=== PATIENT | female | born 1970 | race Caucasian/White ===

== ENCOUNTER 2024-11-25 10:06 | Emergency (ER) | payer BC, SELFPAY ==
[2024-11-25 10:18] VITALS: BP 142/89; PULSE 77; RESP 16; TEMP 36.6; O2SAT 97; BMI 31.0
--- NOTE | 2024-11-25 10:23 | XR_ITS ---
Examination: CT brain head without contrast. 2-D sagittal coronal reconstructions Date and time of exam:November 25, 2024 1041 hrs. Dizziness, hearing loss today CTDI: vol (mGy):51.2 DLP: (mGycm):1023 Technique: Multiple CT axial sections of the brain have been obtained, 5 mm slice thickness. Contrast has not been administered. 2-D sagittal, coronal reconstructions have been obtained Low dose protocols were performed. One or more of the following dose reduction techniques were used; automated exposure control, adjustment of the mA and/or KV according to patient size, use of iterative reconstruction technique. Findings: No significant ventricular enlargement. Intra-axial or extra-axial hemorrhage density is not seen. No mass effect or midline shift Basal cisterns are not remarkable. Fourth ventricle is midline. Cranial vault intact. Impression: Negative for acute hemorrhage, mass effect or midline shift Advise clinical correlation and follow-up accordingly
--- NOTE | 2024-11-25 10:23 | EKG_ITS ---
[facility] Test Date: 2024-11-25 Pat Name: RICK GUZMAN Department: Room: - Gender: Female Overnight Houseperson: : 1970 Requested By: Juan Manuel Prince Order Number: [id number] Reading MD: Juan Manuel Prince Measurements Intervals [place] Rate: 65 P: 5 WA: 129 QRS: 31 QRSD: 106 T: 50 QT: 408 QTc: 426 Interpretive Statements SINUS RHYTHM LOW QRS VOLTAGE IN PRECORDIAL LEADS [QRS DEFLECTION < 1.0 mV IN CHEST LEADS] No previous ECG available for comparison /store/[id number]
--- NOTE | 2024-11-25 10:24 | EDRME_ITS ---
Rapid Medical Screening Exam [facility] Arrival date/time: 11/25/24 10:06 54-year-old female with no known medical history presents to the emergency room with a chief complaint of left-sided arm numbness, and left-sided facial numbness, and left-sided hearing disturbances x 1 day. Patient also states she has had left-sided arm numbness x 1 week. I have greeted and performed a focused initial assessment of this patient. A comprehensive ED assessment and evaluation of the patient, analysis of all test results, and completion of the medical decision making process will be conducted by additional ED providers. Chief Complaint: Extremity Problem,Nontraumatic Time Seen by Provider: 11/25/24 10:20 Vital signs: Vital Signs Temperature 97.9 F 11/25/24 10:18 Pulse Rate 77 11/25/24 10:18 Respiratory Rate 16 11/25/24 10:18 Blood Pressure 142/89 H 11/25/24 10:18 Pulse Oximetry (%) 97 11/25/24 10:18 Oxygen Delivery Method Room Air 11/25/24 10:18 Vital signs reviewed by provider: Yes
--- NOTE | 2024-11-25 11:26 | PRELIM_ITS ---
CT scan of the head without intravenous contrast (axial sections with sagittal and coronal reformats) November 25, 2024 1041 hours Clinical history: dizziness, hearing loss Comparison: No prior study is available for comparison. Findings: There is no evidence of intracranial hemorrhage, mass effect or midline shift. There are periventricular white matter hypodensities, compatible with chronic small vessel ischemia. There is mild volume loss. The calvarium is unremarkable. The mastoid air cells and the visualized paranasal sinuses are clear. Impression: No evidence of intracranial hemorrhage, mass effect or midline shift. Periventricular chronic small vessel ischemia and volume loss. Report Electronically Signed By: Zander Herr 11/25/2024 11:25:32 AM [EST]
[2024-11-25 11:32] LABS: Collection Type, Urine Clean Catch
[2024-11-25 11:37] LABS: Basophils % (Auto) 0 % (0-2.5); Eosinophils # (Auto) 0.1 Thou/mm3 (0.0-0.5); Eosinophils % (Auto) 1 % (0-10); Hematocrit 35.6 % (36.0-46.0); Immature Granulocytes % (Auto) 0 % (0-0); Immature Granulocytes Auto 0.01 Thou/mm3 (0.00-0.00); Lymphocytes % (Auto) 30 % (10-50); Mean Corpuscular HGB Conc 33.7 g/dl (31.0-37.0); Mean Corpuscular Hemoglobin 29.1 pg (25.0-35.0); Mean Corpuscular Volume 86 fL (80-100); Monocytes # (Auto) 0.8 Thou/mm3 (0.0-0.8); Monocytes % (Auto) 12 % (0-12); Neutrophils # (Auto) 3.8 Thou/mm3 (1.8-7.7); Neutrophils % (Auto) 58 % (37-80); Nucleated Red Blood Cell % 0 /100 WBC (0); Platelet Count 260 Thou/mm3 (140-440); RDW Standard Deviation 43.9 fL (36.4-46.3); Red Blood Count 4.12 Miln/mm3 (4.00-5.20); White Blood Count 6.7 Thou/mm3 (3.6-11.0)
[2024-11-25 11:51] LABS: INR 0.9 (0.9-1.3); Partial Thromboplastin Time 22.2 Seconds (22.0-36.0); Prothrombin Time 10.3 Seconds (9.0-12.2)
[2024-11-25 11:54] LABS: B-Type Natriuretic Peptide 39 pg/mL (0-100)
[2024-11-25 11:55] LABS: Amphetamine/Methamp Scrn,U Negative (Negative); Barbiturate Screen,Urine Negative (Negative); Benzodiazepines Screen,Urine Negative (Negative); Benzoylecgonine Screen, Ur Negative (Negative); Fentanyl Screen,Urine Negative (Negative); Opiate Screen,Urine Negative (Negative); THC Screen,Urine Negative (Negative)
[2024-11-25 11:56] LABS: Alanine Aminotransferase 38 U/L (10-49); Albumin, Serum 4.6 gm/dL (3.5-5.0); Albumin/Globulin Ratio 2.2 (1.2-2.2); Alkaline Phosphatase 82 U/L (46-116); Anion Gap 9 (7-16); Aspartate Amino Transferase 22 U/L (0-34); BUN/Creatinine Ratio 25 Ratio (12-20); Bilirubin,Total 0.3 mg/dL (0.3-1.2); Blood Urea Nitrogen 15 mg/dL (9-23); Calcium 9.7 mg/dL (8.3-10.6); Calcium (Corrected) 9.7 mg/dL (8.5-10.1); Chloride 105 mMol/L (98-107); Creatinine (Component) 0.6 mg/dL (0.6-1.3); Estimated Creatinine Clearance 117.9 mL/min (>60); Globulin 2.1 gm/dL (2.3-3.5); Glucose 102 mg/dL (74-106); Osmolality,Calculated 280 (275-295); Potassium 4.3 mMol/L (3.4-5.1); Sodium 140 mMol/L (136-145); Total Protein 6.7 gm/dL (5.7-8.2); Troponin I < 0.002 ng/mL (0.0-0.045); eGFR > 60 See Note
[2024-11-25 12:04] LABS: Bilirubin,Urine Negative (Negative); Blood,Urine Negative (Negative); Clarity,Urine Clear (Clear/Hazy); Color,Urine Colorless (Lt Yel-Yel); Glucose, Urine Negative (Negative); Ketones,Urine Negative (Negative); Leukocyte Esterase,Urine Negative (Negative); Nitrite,Urine Negative (Negative); Protein,Urine Negative (Neg - Trace); RBC,Urine 2 /hpf (0-3); Specific Gravity,Urine 1.008 (1.001-1.035); Squamous Epithelial Cell,Urine 4 /hpf (0-5); Urobilinogen,Urine Negative mg/dL (0.0-1.0); WBC,Urine 1 /hpf (0-5)
== END 2024-11-25 14:54 | disposition left against medical advice (07) ==
PROVIDERS: Nurse Practitioner Family; Emergency Provider Emergency Medicine; PCP Physician Assistant
DX: R20.0 Anesthesia of skin (principal); R94.31 Abnormal electrocardiogram [ECG] [EKG]; R42 Dizziness and giddiness; H91.92 Unspecified hearing loss, left ear; Z53.29 Procedure and treatment not carried out because of patient's decision for other reasons
CPT/HCPCS: 36415; 70450; 80053; 80307; 81001; 83735; 83880; 84484; 85025; 85610; 85730; 93005; 99284

== ENCOUNTER 2025-01-14 12:50 | Outpatient (AMB) | payer BC, SELFPAY ==
[2025-01-14 13:00] VITALS: BP 118/78; PULSE 65; RESP 19; TEMP 36.4; O2SAT 97; BMI 30.8
--- NOTE | 2025-01-14 13:00 | PD.ORTHCLVIS ---
Vital signs 01/14/25 13:00 Height 1.68 m Height Method Stated Weight 86.693 kg Weight Measurement Method Standing Scale BMI 30.8 BP 118/78 Blood Pressure Source Automatic Cuff Blood Pressure Location Left Upper Arm Position Sitting Respiration 19 Pulse 65 Pulse Source Monitor Temp 97.5 F Temp Source Temporal Artery Scan Pulse Oximetry (%) 97 Oxygen Delivery Method Room Air Med/Allergies Allergies & Medications Allergies No Known Allergies Allergy (Mild, Uncoded 01/14/25 13:01) NONE Medication Reconciliation Unobtainable 01/14/25 [History Confirmed 01/14/25] Exam Exam Breathing is nonlabored. Patient has a normal mood and affect. Bilateral extremities were evaluated and demonstrates sensation intact to light touch. Palpable pedal pulses are present. No significant edema is present. Bilateral hips were examined. The patient has no pain with log roll of the hips. Internal rotation to 30 degrees and external rotation to 30 degrees is painless. Negative FADIR. Left knee was examined today. The left knee is in reasonable alignment. Range of motion from 0-120 degrees. Knee is stable to varus and valgus as well as AP translation with <5mm. Patient has a negative McMurrays. There is no pain with patellofemoral compression and no crepitus noted. The knee is nontender to palpation. The right knee was also examined. The right knee is in varus alignment. Range of motion from 0-115 degrees. Knee is stable to varus and valgus as well as AP translation with <5mm. Patient has a negative McMurrays. There is no pain with patellofemoral compression and no crepitus noted. The knee is tender to palpation medially. X-rays Demonstrate osteophytes and significant joint space narrowing medially with duration Assessment and Plan Problem List (1) Unilateral primary osteoarthritis, right knee: Status: Acute Plan Patient is a pleasant 54-year-old female with severe right knee arthritis who is failed conservative treatment. She has tried injections including PRP and stem cells and is paid over $9000 [id number], anti-inflammatories, And home exercises. We discussed total knee replacement as a reasonable option given her failure conservative treatment The nature and purpose of the total knee replacement, alternative method(s) of treatment, the material risks involved, and the possibility of complications were fully explained to the patient. The patient does NOT have any of the following contraindications to TKA: - Active infection of the knee joint, OR - Active systemic bacteremia, OR - Active skin infection or open wound at surgical site, OR - Neuropathic arthritis, OR - Severe, rapidly progressive neurological disease, OR - Severe medical condition that makes risks of surgery outweigh the potential benefit The patient was told the most common risks and complications associated with a total knee replacement include, but are not limited to: blood clots in the leg, fatal pulmonary embolism, dislocation of the prosthesis, intraoperative and postoperative fractures of the femur or tibia, infection, failure of the prosthesis or grafting materials, complications from anesthesia, reactions to blood transfusions, postoperative leg length inequality, instability of the knee replacement, nerve damage or injury, vascular injury, delayed wound healing, infection, other injury or even . In addition, there are risks associated with anesthesia given during this operation. Also, the patient was told that after undergoing a total knee replacement there may still be persistent pain or disability. The patient was informed that the success of this operation in part depends upon the mechanical devices which are going to be implanted and that these devices can fail or malfunction, and may need to be repaired or replaced and there are no guarantees as to the longevity of this device or its parts and that it or its parts could fail prematurely. The patient was also notified that during the course of surgery, there may be a need to use bone graft from donors, and that any bone graft used will be carefully screened for communicable diseases, including AIDS, hepatitis, Jose Juan-Creutzfeldt, or other diseases, but despite the screening procedures, there is a small chance that they could contract one of these diseases. Finally, the patient was asked to follow completely and fully with all advice and recommended treatments, and that recovery and ultimate outcome are affected by their compliance with recommended treatment. We discussed the risks, benefits and treatment alternatives, and the patient is interested in proceeding with surgery. We will try to set this up as expeditiously as possible. 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 3 (1599-1286) HI Intake Visit Data Collection New Patient or Established: Established Patient (seen at [facility] [place] within 3 years) Reason for Visit:: RIGHT KNEE PAIN Natural Resource Specialist Required: No Do You Feel Safe at Home: Yes Questionairres Past Medical History Past Medical History Have you ever been diagnosed with any of the following: Cardiology Problems Hypertension: No Respiratory Problems Smoking: No Smoking Exposure: No Tobacco Use: No Subjective Visit Visit for: new patient and knee (RIGHT) Immunization / Flu Flu Vaccine in the Last 12 Months: No Flu Vaccine Exclusion Criteria: No Exclusion Criteria History of Present Illness Chief complaint: RIGHT KNEE PAIN Ignacia is a pleasant 54-year-old female with right knee pain that has been ongoing for over a year. This occurred after a fall. She was told she was [id number] on the right knee. She has tried several PRP and stem cell injections in [place]. They initially worked but no longer work. She has also tried home exercises but is very limited because of the pain Personal History Red flag PMH: none BMI Counceling provided: Yes Pain Pain level (0-10): 6 Pain duration: CONSTANT Pain location: outside (lateral) and anterior Pain quality: sharp Pain timing: night, increases with activity and stairs Associated signs & symptoms: weakness and stiffness Ambulatory data Ambulatory device: none Treatments Improvement with previous injections: No Improvement with PT: No Improvement with NSAIDS: yes Review of Systems Review of Systems: All systems negative unless otherwise noted in HPI.
--- NOTE | 2025-01-14 13:16 | XR_ITS ---
Examination: Bilateral AP knees PA upright right knee, lateral axial right knee TECHNIQUE: Bilateral AP upright knees single view Upright PA knees, lateral axial right knee 3 views total 4 views Exam date and time: January 14, 2025 1324 hours INDICATIONS: Right knee swelling pain and swelling months FINDINGS: Advanced narrowing medial joint space right knee Significant osteoarthritis lateral and especially patellofemoral joint Small right knee effusion No fractures Mild narrowing medial lateral joint space left knee IMPRESSION: Advanced narrowing medial joint space right knee Significant osteoarthritis lateral joint space right knee Advanced osteoarthritis right patellofemoral joint
== END 2025-01-14 14:00 | disposition home or self-care (01) ==
LOC: HODSRG 12:50
PROVIDERS: PCP Physician Assistant; Referring Provider Physician Assistant; Supervising Provider Orthopaedic Surgery Adult Reconstructive Orthopaedic Surgery; Visit Provider Orthopaedic Surgery Adult Reconstructive Orthopaedic Surgery
DX: M17.11 Unilateral primary osteoarthritis, right knee (principal)
CPT/HCPCS: 73564; 99203; G0463

== ENCOUNTER → 2025-01-18 | Outpatient (CLI) | payer SELFPAY ==
--- NOTE | 2025-01-18 14:02 | XR_ITS ---
Examination: CT right lower extremity, without contrast. 2-D sagittal reconstructions. 2-D coronal reconstructions. 3-D reconstructions. Date and time of exam:January 18, 2025 1420 hours INDICATIONS: Diagnosis unilateral primary osteoarthritis right knee right knee pain one year CTDI: vol (mGy):12.4 DLP: (mGycm):987 Technique: Multiple 1.25 mm axial sections of the right lower extremity without intravenous contrast have been obtained. 2-D sagittal and coronal reconstructions have been obtained. 3-D reconstructions have been obtained. Low dose protocols were performed. One or more of the following dose reduction techniques were used; automated exposure control, adjustment of the mA and/or KV according to patient size, use of iterative reconstruction technique. Findings: Moderate osteopenia Minimal right hip osteoarthritis No right hip fracture or dislocation Advanced right knee tricompartment osteoarthritis, severe narrowing medial joint space No patellar dislocation No fracture IMPRESSION: Advanced right knee tricompartment osteoarthritis
== END | disposition home or self-care (01) ==
LOC: SCAT 13:52
PROVIDERS: PCP Physician Assistant; Referring Provider Orthopaedic Surgery Adult Reconstructive Orthopaedic Surgery; Visit Provider Orthopaedic Surgery Adult Reconstructive Orthopaedic Surgery
DX: M17.11 Unilateral primary osteoarthritis, right knee (principal)
CPT/HCPCS: 73700

== ENCOUNTER 2025-01-28 06:50 | Day surgery (SDC) | payer BC, SELFPAY ==
[2025-01-25 07:06] VITALS: BMI 30.9
--- NOTE | 2025-01-25 08:10 | EKG_ITS ---
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
[2025-01-25 08:35] LABS: Anion Gap 9 (7-16); BUN/Creatinine Ratio 31 Ratio (12-20); Blood Urea Nitrogen 22 mg/dL (9-23); Calcium 9.3 mg/dL (8.3-10.6); Carbon Dioxide 21.4 mMol/L (20.0-31.0); Chloride 105 mMol/L (98-107); Creatinine (Component) 0.7 mg/dL (0.6-1.3); Estimated Creatinine Clearance 100.9 mL/min (>60); Glucose 92 mg/dL (74-106); Osmolality,Calculated 273 (275-295); Potassium 3.9 mMol/L (3.4-5.1); Sodium 135 mMol/L (136-145); eGFR > 60 See Note
[2025-01-25 08:37] LABS: Basophils % (Auto) 0 % (0-2.5); Eosinophils # (Auto) 0.1 Thou/mm3 (0.0-0.5); Eosinophils % (Auto) 1 % (0-10); Hematocrit 36.7 % (36.0-46.0); Hemoglobin 12.3 g/dL (12.0-16.0); Immature Granulocytes % (Auto) 0 % (0-0); Immature Granulocytes Auto 0.01 Thou/mm3 (0.00-0.00); Lymphocytes # (Auto) 2.1 Thou/mm3 (1.0-4.8); Lymphocytes % (Auto) 36 % (10-50); Mean Corpuscular HGB Conc 33.5 g/dl (31.0-37.0); Mean Corpuscular Hemoglobin 29.2 pg (25.0-35.0); Mean Corpuscular Volume 87 fL (80-100); Monocytes # (Auto) 0.6 Thou/mm3 (0.0-0.8); Monocytes % (Auto) 11 % (0-12); Neutrophils % (Auto) 52 % (37-80); Nucleated Red Blood Cell % 0 /100 WBC (0); Platelet Count 268 Thou/mm3 (140-440); Red Blood Count 4.21 Miln/mm3 (4.00-5.20); White Blood Count 5.7 Thou/mm3 (3.6-11.0)
[2025-01-25 08:57] LABS: Partial Thromboplastin Time 25.9 Seconds (22.0-36.0); Prothrombin Time 10.6 Seconds (9.0-12.2)
--- NOTE | 2025-01-25 14:53 | SUR.PREOP ---
Pt notified to come in at 0700 on Tuesday for surgery.
[2025-01-28] VITALS (18 sets, daily range): BP systolic 114–162; BP diastolic 63–99; PULSE 69–96; RESP 12–20; TEMP 36.1–36.8; O2SAT 91–99; BMI 30.9
[2025-01-28] MEDS: MELOXICAM 7.5 MG TABLET PO (07:47)
[2025-01-28] MEDS: PREGABALIN 75 MG CAPSULE PO (07:48)
[2025-01-28] MEDS: ACETAMINOPHEN 325 MG TABLET 650 MG PO (07:48)
[2025-01-28] MEDS: RINGERS LACTATED 1000 ML 1,000 ML 20 ML IV (07:48)
--- NOTE | 2025-01-28 11:21 | ESOP_ITS ---
Date of Procedure 01/28/25 Pre Op Diagnosis right knee osteoarthritis Post Op Diagnosis right knee osteoarthritis Procedure right total knee replacement Findings full thickness cartilage loss and osteophytes Procedure Description Indication: The patient is a 54 year old who has a long history of right knee pain. X-rays show degenerative arthritis involving the knee. Over the past several years the patient has had increasing pain, progressive limitation in function. He has failed conservative measures including activity modification, physical therapy, injections, anti-inflammatories, and assistive devices. After a lengthy discussion of the risks and benefits, the patient presents now for total knee replacement. The nature and purpose of the total knee replacement, alternative method(s) of treatment, the material risks involved, and the possibility of complications were fully explained to the patient. The patient was told the most common risks and complications associated with a total knee replacement include, but are not limited to blood clots in the leg, fatal pulmonary embolism, dislocation of the prosthesis, intraoperative and postoperative fractures of the femur or tibia, infection, failure of the prosthesis or grafting materials, complications from anesthesia, reactions to blood transfusions, postoperative leg length inequality, instability of the knee replacement, nerve damage or injury, vascular injury, delayed wound healing, infections, other injury or even . In addition, there are risks associated with anesthesia given during this operation, temporary or permanent numbness on the skin lateral to the incision can be a complication unique to total knee surgery, and kneeling can be painful after knee replacement surgery. Also, the patient was told that after undergoing a total knee replacement there may still be pain or disability. We discussed with the patient that we will be using a robot-assisted technology. We discussed that there is a possibility of converting to manual instrumentation. The patient was informed that the success of this operation in part depends upon the mechanical devices which are going to be implanted and that these devices can fail or malfunction, and may need to be repaired or replaced and there are no guarantees as to the longevity of this device or its part and that it or its parts could fail prematurely. Finally, the patient was asked to follow completely and fully with all advice and recommended treatments, and that recovery and ultimate outcome are affected by their compliance with recommended treatment. Surgical technique: Patient was marked and consented in the pre-operative area. The patient was brought to the operating room and placed on the operating table in a supine position. Prior to positioning, a timeout procedure was performed between the surgeon, the anesthesiologist, and the nursing staff where the patient and the operative side were identified and confirmed. After adequate general anesthetic was obtained, the right lower extremity was prepped and draped in the usual sterile fashion. A weight based dose of Cefazolin were administered within 1 hour prior to incision. The robot was preregistered and calirated before the incision. The extremity was exsanguinated with an esmarch badge and tourniquet inflated to 250mmHg. A midline incision was made. A median parapatellar arthrotomy was made. The patella was subluxed laterally. A medial release was performed to expose the medial tibia. His femoral and tibial pins were placed through an intra incisional manner for both cases. Every effort was made to ensure that the distalmost aspect of the pin was hung in the second cortex. The arrays were then tightened several times to ensure that it was fixed for the remainder of the case. Both femoral and tibial checkpoints were then placed. We then went through the registration process of the bone. We then assessed the knee deformity and attempted to correct it. We also used the robot to aid in judging laxity in both extension and flexion. Final based on laxity and alignment we changed the preoperative assessment to obtain proper proper implant positioning and to correct deformity. Attention was then placed to the tibia. We made a tibial cut using the robot ensuring that both the MCL and the patella tendon were protected with retractors. We then went to the femur and made the posterior cut followed by the anterior cut and the anterior chamfer. The bone was then removed and we made a distal femur cut and a posterior chamfer cut. We verified all cuts. A trial reduction was performed with a size [3] femoral component and a size [2] keeled tibial component. The patella was cut and sized to a [33]. The patella tracked centrally, and no lateral retinacular release was necessary. The trial implants were removed. The arrays, pins, and checkpoints were all removed. We performed a verification that all pins were removed. The cut bone surfaces were lavaged. A size [3] right femoral component, a size [2] keeled tibial component, and a size [33] patella were impacted into position. The knee was felt to be well balanced in the sagittal and coronal plane. The final 2x9 mm cruciate-substituting articular insert was impacted into the tibial tray. The knee was brought out to full extension, flexed up to 120 degrees. It was stable to varus and valgus stress and appropriately balanced in flexion and extension. The wounds were copiously irrigated following deflation of tourniquet. The medial retinaculum was reapproximated with #1 vicryl and quill. The subcutaneous tissues were closed with 0 and 2-0 interrupted Vicryl. The skin was closed with 3-0 Monofilament V loc suture. A sterile dressing was applied. The patient was transferred to a bed and brought to recovery in stable condition. The patient tolerated the procedure well. There were no intraoperative complications. Sponge and needle counts were correct times 2. As the attending surgeon, I attest I was present and performed the entire operation. Grafts/Implants Size [3] CR Femur Size [2] Tibia 9mm poly CS [33]mm patella Anesthesia GETA Implants lili Pathology / specimen None Pathology comment: none Estimated Blood Loss 150 Condition Stable Disposition same day Surgeon Eric Zheng MD Surgical Staff Operation Date: 01/28/25 10:15 Case Staff Anesthesiologist: Zander Cartwright RNmetal organ pipe maker: Yessica Cuello
--- NOTE | 2025-01-28 11:24 | XR_ITS ---
Examination: AP lateral right knee 2 views Technique one AP lateral right knee 2 views Exam date and time: January 20, 2025 1229 hours INDICATIONS: Postop knee replacement FINDINGS: Total right knee arthroplasty. Satisfactory alignment No fracture IMPRESSION: Total right knee arthroplasty with satisfactory alignment
--- NOTE | 2025-01-28 11:50 | SUR.PHASEI ---
Pt. arrived to recovery via gurney, eyes closed, responds to verbal commands, VSS, no c/o pain or nausea at this time, dressing to right knee, sutures, prineo, telfa, abd. pad, web roll and renee wrap in place, no active bleeding or redness noted, pedal pulses present and palpable liban., cap refill <3 seconds to right great toe. Lung sounds clear, rhonchi noted on inspiration, pt. receiving 4 liters 02 via AR. Report received from Joseph PORTER and Dr. Cartwright.
[2025-01-28] MEDS: fentaNYL CIT INJ 50 mCg/ML AMP 2ML IV (12:19)
--- NOTE | 2025-01-28 12:20 | SUR.PHASEII ---
pt in [facility] with eyes closed, breathing unlabored, dressing to right lower extremity clean, dry, and intact, VS stable, report from Karen PORTER
--- NOTE | 2025-01-28 12:30 | SUR.PHASEII ---
Xray at bedside
--- NOTE | 2025-01-28 13:30 | SUR.PHASEII ---
physical therapy at bedside, pt disconnected from monitors
--- NOTE | 2025-01-28 13:45 | SUR.PHASEII ---
pt sleepy and unable to keep oxygen saturation above 92% on room air, oxygen applied, will continue deep breathing exercises and trial room air
[2025-01-28] MEDS: ONDANSETRON INJ 2 MG/ML INJ 2 ML 4 MG IV (15:42)
--- NOTE | 2025-01-28 15:50 | SUR.PHASEII ---
pt awake, alert, able to follow commands, breathing unlabored, dressing to right lower extremity clean, dry, and intact, pedal pulses present and equal bilaterally, discharge instructions given with spouse present-all questions answered, pt and spouse verbalize understanding of discharge instructions, pt discharged via wheelchair with all belongings and copies of discharge paperwork.
--- NOTE | 2025-01-30 13:40 | PD.ANESPROG ---
Documentation for date of: 01/30/25 POST ANESTHESIA NOTE: Patient had GETA and R adductor canal block for R TKA on 01/28/25. I just called her number, answered by her , who reported she wasn't available and so I said I'd call back another time and he had no further questions. Zander Cartwright MD Anesthesia Progress Note Progress Note Most recent Vital Signs: Last Vital Signs Temp 97.6 F 01/28/25 15:30 Pulse 70 01/28/25 15:30 Resp 15 01/28/25 15:30 BP 120/71 01/28/25 15:30 Pulse Ox 97 01/28/25 15:30 O2 Flow Rate 2 01/28/25 15:00
== END 2025-01-28 15:50 | disposition home or self-care (01) ==
PROVIDERS: PCP Physician Assistant; Referring Provider Orthopaedic Surgery Adult Reconstructive Orthopaedic Surgery; Visit Provider Orthopaedic Surgery Adult Reconstructive Orthopaedic Surgery
PROC: (CPT 27447; principal; 2025-01-28 10:00)
DX: M17.11 Unilateral primary osteoarthritis, right knee (principal); Z01.810 Encounter for preprocedural cardiovascular examination; M25.761 Osteophyte, right knee
CPT/HCPCS: 27447; 20985; 36415; 73560; 80048; 85025; 85610; 85730; 93005; 97162; A4217; C1713; C1776; J0690; J1100; J2250; J2371; J2405; J2704; J2795; J3010; J3490; J7030; J7120; J7999; A4648; A4649; A9270; J1805

== ENCOUNTER 2025-02-12 08:50 | Outpatient (AMB) | payer BC, SELFPAY ==
[2025-02-12 08:58] VITALS: BP 116/78; PULSE 74; RESP 18; TEMP 36.6; O2SAT 97; BMI 30.2
--- NOTE | 2025-02-12 08:58 | ORTHONT_ITS ---
Vital signs 02/12/25 08:58 Height 1.68 m Height Method Stated Weight 84.822 kg Weight Measurement Method Standing Scale BMI 30.2 BP 116/78 Blood Pressure Source Automatic Cuff Blood Pressure Location Right Upper Arm Position Sitting Respiration 18 Pulse 74 Pulse Source Monitor Temp 97.8 F Temp Source Temporal Artery Scan Pulse Oximetry (%) 97 Oxygen Delivery Method Room Air Med/Allergies Allergies & Medications Allergies No Known Allergies Allergy (Verified 02/12/25 08:59) Medication Reconciliation estradiol 0.1 mg/24 hr semiweekly transdermal patch 1 mg topical .twice week MENOPAUSAL SYMPTOMS 01/25/25 [History Confirmed 02/12/25] methylphenidate HCl 10 mg tablet 10 mg PO DAILY ADHD 01/25/25 [History Confirmed 02/12/25] mirabegron 25 mg tablet,extended release 24 hr (Myrbetriq) 25 mg PO QDAY 01/25/25 [History Confirmed 02/12/25] acetaminophen 500 mg tablet (Acetaminophen Extra Strength) 1,000 mg (2 x 500 mg) PO Q6H PRN pain #90 tabs 01/28/25 [Rx Confirmed 02/12/25] aspirin 81 mg tablet,delayed release 81 mg PO BID #60 tabs 01/28/25 [Rx Confirmed 02/12/25] doxycycline hyclate 100 mg tablet 100 mg PO BID #14 tabs 01/28/25 [Rx Confirmed 02/12/25] gabapentin 300 mg capsule 300 mg PO .qhs #30 caps 01/28/25 [Rx Confirmed 02/12/25] oxycodone 5 mg tablet 5 mg PO Q6H PRN pain #28 tabs 01/28/25 [Rx Confirmed 02/12/25] pantoprazole 40 mg tablet,delayed release 40 mg PO QDAY #20 tabs 01/28/25 [Rx Confirmed 02/12/25] sennosides 8.6 mg-docusate sodium 50 mg tablet (Senna-S) 1 tab-cap PO QDAY #30 tabs 01/28/25 [Rx Confirmed 02/12/25] cyclobenzaprine 5 mg tablet 5 mg PO TID PRN muscle spasm #60 tabs 01/30/25 [Rx Confirmed 02/12/25] oxycodone 5 mg tablet 5 mg PO Q6H PRN pain #28 tabs 02/01/25 [Rx Confirmed 02/12/25] Exam Exam Breathing is nonlabored. Patient has a normal mood and affect. Bilateral extremities were evaluated and demonstrates sensation intact to light touch. Palpable pedal pulses are present. No significant edema is present. Bilateral hips were examined. The patient has no pain with log roll of the hips. Internal rotation to 30 degrees and external rotation to 30 degrees is painless. Negative FADIR. Left knee was examined today. The left knee is in reasonable alignment. Range of motion from 0-120 degrees. Knee is stable to varus and valgus as well as AP translation with <5mm. Patient has a negative McMurrays. There is no pain with patellofemoral compression and no crepitus noted. The knee is nontender to palpation. The right knee was also examined. The right knee is in varus alignment. Range of motion from 0-115 degrees. Knee is stable to varus and valgus as well as AP translation with <5mm. Patient has a negative McMurrays. There is no pain with patellofemoral compression and no crepitus noted. The knee is tender to palpation medially. X-rays Demonstrate osteophytes and significant joint space narrowing medially with duration Assessment and Plan Problem List (1) Unilateral primary osteoarthritis, right knee: Status: Acute Plan: Patient is a pleasant 54-year-old female with a recent right total knee replacement. She is doing well. We will transition her to outpatient physical therapy We will see her back IN 4 weeks with new xrays Office Procedures GNS Level of Care Nursing/Assessment Patient Status: Established Patient Nursing Assessment/Reassesment: Medication Reconciliation, Update PMH in EMR and Vital Signs Coordination of Care: Complex Care and Chronic Disease 1-5, Education Complex Pt/Fam, Consent,records obtained, informed consent, 1 Ins Authorization, Lab and Imaging orders, Results/Orders obtained and Staff clarify orders Established Patient Charge Established Patient Point Assignment: 125 Established Patient Point Charge: EP Level 4 (120-155) MA Intake Visit Data Collection New Patient or Established: Established Patient (seen at [facility] within 3 years) Reason for Visit:: 2 WEEK POST OP RIGHT TKA Seen by Clinical Staff ONLY (RN/MA): No Verbal consent obtained for Telemed visit?: No 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 PCP or OBGYN visit in last 3 months: Yes Hx Now: No Do You Feel Safe at Home: Yes Authorities Contacted: N/A Questionairres Past Medical History Past Medical History Have you ever been diagnosed with any of the following: Neurological Problems Seizures: No Cardiology Problems Congestive Heart Failure: No Hypertension: No Respiratory Problems Chronic Obstructive Pulmonary Disease (COPD): No Smoking: No Smoking Exposure: No Tobacco Use: No Stomache/Intestinal Problems Hepatitis: No Diverticulosis: Yes Genital/Urinary Problems Renal Disease: No Reproductive Problems Previous Pregnancies: Yes Musculoskeletal Problems Arthritis: Yes Endocrine Problems Diabetes Mellitus Type 1: No Psychologic Problems Anxiety: Yes Other Problems Hospitalization: Yes (surgery) Shingles: No Blood Transfusions: No Blood Transfusion Reaction: No Anesthesia Reactions: No Chicken Pox: Yes Mumps: Yes Cancer: No Surgical History Hysterectomy: Yes Subjective Visit Visit for: post op #1 and knee Immunization / Flu Flu Vaccine in the Last 12 Months: Yes Flu Vaccine Exclusion Criteria: Already Received History of Present Illness Chief complaint: 2 WEEK POST OP RIGHT TKA Ignacia is a pleasant 54-year-old female with right knee pain that has been ongoing for over a year. She is doing well 2 weeks status post right total knee replacement. She is happy Personal History Red flag PMH: BMI BMI Counceling provided: Yes Pain Pain level (0-10): 4 Pain duration: CONSTANT Pain location: anterior Pain quality: sharp, dull and aching Pain timing: increases with activity Associated signs & symptoms: none Ambulatory data Ambulatory device: none Treatments Improvement with previous injections: No Improvement with PT: No Improvement with NSAIDS: no Review of Systems Review of Systems: All systems negative unless otherwise noted in HPI.
== END 2025-02-12 09:26 | disposition home or self-care (01) ==
LOC: HODSRG 08:50
PROVIDERS: PCP Physician Assistant; Referring Provider Physician Assistant; Supervising Provider Orthopaedic Surgery Adult Reconstructive Orthopaedic Surgery; Visit Provider Orthopaedic Surgery Adult Reconstructive Orthopaedic Surgery
DX: M17.11 Unilateral primary osteoarthritis, right knee (principal); Z96.651 Presence of right artificial knee joint
CPT/HCPCS: 99214; G0463

== ENCOUNTER 2025-03-01 11:00 | Outpatient (RCR) | payer BC, SELFPAY ==
--- NOTE | 2025-02-21 14:38 | PT.OIERPT ---
PT OP Initial Eval Patient Information Outpatient Physical Therapy Treatment Date: 02/21/25 Visit Reasons: s/p right TKA Medical Diagnosis: Right Knee OA Treatment Dx #1: Right Knee Mobility Deficits Treatment Dx #2: Right Knee Weakness Start of Care: 02/21/25 Date of Onset: 01/28/25 Smoking Status Smoking Status: Never smoker Initial Assessment Subjective: Pt is a 54 y/o female s/p right TKA 01/28/25 due to knee OA. Pt still has limitation with walking, standing, chores, self care, cooking, cleaning, balance, work duties, and performing recreational activities. Objective: Right Knee AROM: -11 deg to 106 deg Right Knee PROM: -8 deg to 111 deg Right Knee MMTs: grossly 3+/5 Right Hip MMTs: grossly 3/5 SLS: NT Gait Observation: antalgic gait Assessment: Pt demonstrate right knee mobility and strength deficits s/p TKA leading to difficulty with ADLs. Pt will benefit from physical therapy to increase ROM, strength, and work on gait Short Term and Skilled Nursing Goals 1) Decrease knee extension lag to -6 deg in 12 wks to have a normal gait dynamometer mechanic 2) Increase knee flexion AROM to 120 deg in 12 wks to be able to perform squatting activities 3) Increase hip MMTs grossly to 4-/5 in 12 wks to be able to return back to recreational activities 4) Decrease knee pain to 2/10 in 12 wks to be able to walk more than 30 mins 5) Indep with HEP Treatment Plan 1) Manual Therapy 2) Therapeutic Activities 3) Therapeutic Exercises 4) Modalities (ice, heat) 5) Balance Training 6) Gait Training Frequency and Duration: 2 x wk for 12 wks Certification Dates: 02/21/25 to 05/24/25 Procedure Charges OP PT Eval Mod Complex 30 minutes: Yes
--- NOTE | 2025-02-21 16:12 | PT.ODAYNRPT ---
PT Outpatient Daily Note OP Daily Note Outpatient Physical Therapy Treatment Date: 02/21/25 Visit Reasons: s/p right TKA Subjective: Pt's hip is better. Pt is walking more with less limping Objective: Please see flow chart for list of ther ex performed Assessment: tolerate exercises with minimal pain; improve hip stability in gait with more glute activation in stance noted Plan: Continue with PT Length of Time (minutes) of Treatment: 30 Minutes Procedure Charges Therapeutic Exercise 30 minutes: Yes
--- NOTE | 2025-03-01 11:47 | PT.ODAYNRPT ---
PT Outpatient Daily Note OP Daily Note Outpatient Physical Therapy Treatment Date: 03/01/25 Visit Reasons: s/p right TKA Subjective: Pt's knee feels good. Pt does not have any concerns. Objective: Right Knee Flexion AROM: 115 deg Assessment: Pt is progressing with knee flexion AROM with less pain reported. Post ice helped with pain and soreness Plan: Continue with PT Length of Time (minutes) of Treatment: 30 Minutes Procedure Charges Therapeutic Exercise 30 minutes: Yes
== END 2025-03-02 23:59 | disposition home or self-care (01) ==
LOC: CPTX 11:00
PROVIDERS: PCP Physician Assistant; Referring Provider Orthopaedic Surgery Adult Reconstructive Orthopaedic Surgery; Visit Provider Orthopaedic Surgery Adult Reconstructive Orthopaedic Surgery
DX: R53.1 Weakness (principal); R26.89 Other abnormalities of gait and mobility; R26.2 Difficulty in walking, not elsewhere classified; Z96.651 Presence of right artificial knee joint
CPT/HCPCS: 97110; 97162

== ENCOUNTER 2025-03-12 08:59 | Outpatient (AMB) | payer BC, SELFPAY ==
--- NOTE | 2025-03-12 09:12 | PD.ORTHCLVIS ---
Vital signs 03/12/25 09:13 Height 1.68 m Height Method Stated Weight 83.688 kg Weight Measurement Method Standing Scale BMI 29.6 BP 112/74 Blood Pressure Source Automatic Cuff Blood Pressure Location Right Upper Arm Position Sitting Respiration 16 Pulse 75 Pulse Source Monitor Temp 95.6 F L Temp Source Temporal Artery Scan Pulse Oximetry (%) 96 Oxygen Delivery Method Room Air Med/Allergies Allergies & Medications Allergies No Known Allergies Allergy (Verified 03/12/25 09:14) Medication Reconciliation estradiol 0.1 mg/24 hr semiweekly transdermal patch 1 mg topical .twice week MENOPAUSAL SYMPTOMS 01/25/25 [History Confirmed 03/12/25] methylphenidate HCl 10 mg tablet 10 mg PO DAILY ADHD 01/25/25 [History Confirmed 03/12/25] mirabegron 25 mg tablet,extended release 24 hr (Myrbetriq) 25 mg PO QDAY 01/25/25 [History Confirmed 03/12/25] acetaminophen 500 mg tablet (Acetaminophen Extra Strength) 1,000 mg (2 x 500 mg) PO Q6H PRN pain #90 tabs 01/28/25 [Rx Confirmed 03/12/25] aspirin 81 mg tablet,delayed release 81 mg PO BID #60 tabs 01/28/25 [Rx Confirmed 03/12/25] doxycycline hyclate 100 mg tablet 100 mg PO BID #14 tabs 01/28/25 [Rx Confirmed 03/12/25] gabapentin 300 mg capsule 300 mg PO .qhs #30 caps 01/28/25 [Rx Confirmed 03/12/25] oxycodone 5 mg tablet 5 mg PO Q6H PRN pain #28 tabs 01/28/25 [Rx Confirmed 03/12/25] pantoprazole 40 mg tablet,delayed release 40 mg PO QDAY #20 tabs 01/28/25 [Rx Confirmed 03/12/25] sennosides 8.6 mg-docusate sodium 50 mg tablet (Senna-S) 1 tab-cap PO QDAY #30 tabs 01/28/25 [Rx Confirmed 03/12/25] cyclobenzaprine 5 mg tablet 5 mg PO TID PRN muscle spasm #60 tabs 01/30/25 [Rx Confirmed 03/12/25] oxycodone 5 mg tablet 5 mg PO Q6H PRN pain #28 tabs 02/01/25 [Rx Confirmed 03/12/25] Exam Exam Breathing is nonlabored. Patient has a normal mood and affect. Bilateral extremities were evaluated and demonstrates sensation intact to light touch. Palpable pedal pulses are present. No significant edema is present. Bilateral hips were examined. The patient has no pain with log roll of the hips. Internal rotation to 30 degrees and external rotation to 30 degrees is painless. Negative FADIR. Left knee was examined today. The left knee is in reasonable alignment. Range of motion from 0-120 degrees. Knee is stable to varus and valgus as well as AP translation with <5mm. Patient has a negative McMurrays. There is no pain with patellofemoral compression and no crepitus noted. The knee is nontender to palpation. Right knee incisions clean dry intact. Range of motion is 0 to 110 degrees Assessment and Plan Problem List (1) Unilateral primary osteoarthritis, right knee: Status: Acute Plan: Patient is a pleasant 54-year-old female with a recent right total knee replacement. She is doing well. She is happy with her therapy We will see her back in 6 weeks with new x-rays Office Procedures GNS Level of Care Nursing/Assessment Patient Status: Established Patient Nursing Assessment/Reassesment: Medication Reconciliation, Update PMH in EMR and Vital Signs Coordination of Care: Complex Care and Chronic Disease 1-5, Education Complex Pt/Fam, Consent,records obtained, informed consent, Results/Orders obtained and Staff clarify orders Established Patient Charge Established Patient Point Assignment: 95 Established Patient Point Charge: EP Level 3 (80-115) MA Intake Visit Data Collection New Patient or Established: Established Patient (seen at [facility] within 3 years) Reason for Visit:: 6 WK POST OP RT TKA Seen by Clinical Staff ONLY (RN/MA): No Environmental Systems Coordinator Required: No PCP or OBGYN visit in last 3 months: Yes Hx Now: No Do You Feel Safe at Home: Yes Authorities Contacted: N/A Questionairres Past Medical History Past Medical History Have you ever been diagnosed with any of the following: Neurological Problems Seizures: No Cardiology Problems Congestive Heart Failure: No Hypertension: No Respiratory Problems Chronic Obstructive Pulmonary Disease (COPD): No Smoking: No Smoking Exposure: No Tobacco Use: No Stomache/Intestinal Problems Hepatitis: No Diverticulosis: Yes Genital/Urinary Problems Renal Disease: No Reproductive Problems Previous Pregnancies: Yes Musculoskeletal Problems Arthritis: Yes Endocrine Problems Diabetes Mellitus Type 1: No Psychologic Problems Anxiety: Yes Other Problems Hospitalization: Yes (surgery) Shingles: No Blood Transfusions: No Blood Transfusion Reaction: No Anesthesia Reactions: No Chicken Pox: Yes Mumps: Yes Cancer: No Surgical History Hysterectomy: Yes Subjective Visit Visit for: follow up visit, post op #3 (6 WEEK POST OP RT TKA ) and knee (RT ) Immunization / Flu Flu Vaccine in the Last 12 Months: No Flu Vaccine Exclusion Criteria: Refused by Patient History of Present Illness Chief complaint: 2 WEEK POST OP RIGHT TKA Ignacia is a pleasant 54-year-old female with right knee pain that has been ongoing for over a year. She is doing well 6 weeks status post right total knee replacement. She is happy Personal History Red flag PMH: none BMI Counceling provided: Yes Pain Pain level (0-10): 5 Pain duration: 1 WEEK Pain location: anterior Pain quality: burning and other (specify) (SWELLING ) Pain timing: night and increases with activity Associated signs & symptoms: none Ambulatory data Ambulatory device: none Walking distance (minutes): 1 Treatments Number of previous injections: 3 Improvement with previous injections: No Number of Physical Therapy sessions: 5 Improvement with PT: Yes Improvement with NSAIDS: n/a Review of Systems Review of Systems: All systems negative unless otherwise noted in HPI.
[2025-03-12 09:13] VITALS: BP 112/74; PULSE 75; RESP 16; TEMP 35.3; O2SAT 96; BMI 29.6
--- NOTE | 2025-03-12 09:24 | XR_ITS ---
Examination: Bilateral AP knees single view PA lateral axial right knee 3 views TECHNIQUE: Bilateral AP knees standing single view Upright PA right knee flexion, upright lateral right knee, axial right knee 3 views, total 4 views Date and time: March 12, 2025 0934 hours INDICATIONS: Right knee replacement 6 weeks ago. FINDINGS: Total right knee arthroplasty. Satisfactory alignment. No fracture. Mild to moderate narrowing medial lateral joint spaces left knee IMPRESSION: Total right knee arthroplasty with satisfactory alignment
== END 2025-03-12 09:31 | disposition home or self-care (01) ==
LOC: HODSRG 08:59
PROVIDERS: PCP Physician Assistant; Referring Provider Physician Assistant; Supervising Provider Orthopaedic Surgery Adult Reconstructive Orthopaedic Surgery; Visit Provider Orthopaedic Surgery Adult Reconstructive Orthopaedic Surgery
DX: M17.11 Unilateral primary osteoarthritis, right knee (principal); Z96.651 Presence of right artificial knee joint
CPT/HCPCS: 73564; 99213; G0463

== ENCOUNTER 2025-03-28 10:30 | Outpatient (RCR) | payer BC, SELFPAY ==
--- NOTE | 2025-03-04 11:43 | PT.ODAYNRPT ---
PT Outpatient Daily Note OP Daily Note Outpatient Physical Therapy Treatment Date: 03/04/25 Visit Reasons: S/P Rt tka Subjective: Pt's knee is better. Pt mentioned she was a little sore after last session. Pt still notice a small limp with walking. Objective: Please see flow chart for list of ther ex perfromed Assessment: progressing with closed chain exercises. Pt demonstrate improved knee flexion AROM post stretching Plan: Continue with PT Length of Time (minutes) of Treatment: 40 Minutes Procedure Charges Therapeutic Exercise 45 minutes: Yes
--- NOTE | 2025-03-08 08:45 | PT.ODAYNRPT ---
PT Outpatient Daily Note OP Daily Note Outpatient Physical Therapy Treatment Date: 03/08/25 Visit Reasons: S/P Rt tka Subjective: Pt's knee is sore and ache today. 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 Objective: Please see flow chart for list of ther ex perfromed Assessment: modified exercise to open chain today due to reported pain and soreness prior to PT session. Pt encourage to rest today and ice more due to pain. Pt gave verbal consent Plan: Continue with PT Length of Time (minutes) of Treatment: 30 Minutes Procedure Charges Therapeutic Exercise 30 minutes: Yes
--- NOTE | 2025-03-11 12:53 | PT.ODAYNRPT ---
PT Outpatient Daily Note OP Daily Note Outpatient Physical Therapy Treatment Date: 03/11/25 Visit Reasons: S/P Rt tka Subjective: Pt's knee is better. Pt has been using ice more and resting at home. Objective: Right Knee Flexion AROM: 117 deg Assessment: slow progress with knee flexion AROM due to swelling. Post ice helped with pain and swelling Plan: Continue with PT Length of Time (minutes) of Treatment: 40 Minutes Procedure Charges Therapeutic Exercise 45 minutes: Yes
--- NOTE | 2025-03-14 13:26 | PT.ODAYNRPT ---
PT Outpatient Daily Note OP Daily Note Outpatient Physical Therapy Treatment Date: 03/14/25 Visit Reasons: S/P Rt tka Subjective: Pt reports R knee is doing ok. Objective: Please see flow sheet for ther ex list. Assessment: Pt instructed on TKE exercise, pt performed with good technique. Plan: Continue with POC. Length of Time (minutes) of Treatment: 30 Minutes Procedure Charges Therapeutic Exercise 30 minutes: Yes
--- NOTE | 2025-03-21 12:57 | PT.ODAYNRPT ---
PT Outpatient Daily Note OP Daily Note Outpatient Physical Therapy Treatment Date: 03/21/25 Visit Reasons: S/P Rt tka Subjective: Pt reports R knee has been painful and sore. Notices that she has been having pain Objective: Please see flow sheet for ther ex list. Assessment: Performed PROM into knee flexion and extension , minimal guarding. Plan: Continue with poC. Length of Time (minutes) of Treatment: 30 Minutes Procedure Charges Therapeutic Exercise 30 minutes: Yes
--- NOTE | 2025-03-25 13:29 | PT.ODAYNRPT ---
PT Outpatient Daily Note OP Daily Note Outpatient Physical Therapy Treatment Date: 03/25/25 Visit Reasons: S/P Rt tka Subjective: Pt reports knee is feeling better today and notices flexibility improving. Objective: Please see flow sheet for ther ex list. Assessment: Pt demonstrates improved gait pattern, notices decrease limp during GT. Pt ROM continues to improve. Plan: Continue with POC. Length of Time (minutes) of Treatment: 30 Minutes Procedure Charges Therapeutic Exercise 30 minutes: Yes
--- NOTE | 2025-03-28 11:09 | PT.ODAYNRPT ---
PT Outpatient Daily Note OP Daily Note Outpatient Physical Therapy Treatment Date: 03/28/25 Visit Reasons: S/P Rt tka Subjective: Pt reports knee is doing better. Objective: Please see flow sheet for ther ex list. Assessment: Pt ROm into knee flexion continues to improve. 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 Plan: Continue with pOC. Length of Time (minutes) of Treatment: 30 Minutes Procedure Charges Therapeutic Exercise 30 minutes: Yes
== END 2025-04-01 23:59 | disposition home or self-care (01) ==
LOC: CPTX 10:30
PROVIDERS: PCP Orthopaedic Surgery Adult Reconstructive Orthopaedic Surgery; Referring Provider Orthopaedic Surgery Adult Reconstructive Orthopaedic Surgery; Visit Provider Orthopaedic Surgery Adult Reconstructive Orthopaedic Surgery
DX: R53.1 Weakness (principal); R26.2 Difficulty in walking, not elsewhere classified; R26.89 Other abnormalities of gait and mobility; Z96.651 Presence of right artificial knee joint
CPT/HCPCS: 97110

== ENCOUNTER 2025-04-09 10:57 | Outpatient (AMB) | payer BC, SELFPAY ==
--- NOTE | 2025-04-09 11:09 | PD.ORTHCLVIS ---
Vital signs 04/09/25 11:10 Height 1.68 m Height Method Stated Weight 82.129 kg Weight Measurement Method Standing Scale BMI 29.0 BP 120/77 Blood Pressure Source Automatic Cuff Blood Pressure Location Left Upper Arm Position Sitting Respiration 18 Pulse 68 Pulse Source Monitor Temp 97.5 F Temp Source Temporal Artery Scan Pulse Oximetry (%) 98 Oxygen Delivery Method Room Air Med/Allergies Allergies & Medications Allergies No Known Allergies Allergy (Verified 04/09/25 11:11) Medication Reconciliation estradiol 0.1 mg/24 hr semiweekly transdermal patch 1 mg topical .twice week MENOPAUSAL SYMPTOMS 01/25/25 [History Confirmed 04/09/25] methylphenidate HCl 10 mg tablet 10 mg PO DAILY ADHD 01/25/25 [History Confirmed 04/09/25] mirabegron 25 mg tablet,extended release 24 hr (Myrbetriq) 25 mg PO QDAY 01/25/25 [History Confirmed 04/09/25] acetaminophen 500 mg tablet (Acetaminophen Extra Strength) 1,000 mg (2 x 500 mg) PO Q6H PRN pain #90 tabs 01/28/25 [Rx Confirmed 04/09/25] aspirin 81 mg tablet,delayed release 81 mg PO BID #60 tabs 01/28/25 [Rx Confirmed 04/09/25] doxycycline hyclate 100 mg tablet 100 mg PO BID #14 tabs 01/28/25 [Rx Confirmed 04/09/25] gabapentin 300 mg capsule 300 mg PO .qhs #30 caps 01/28/25 [Rx Confirmed 04/09/25] pantoprazole 40 mg tablet,delayed release 40 mg PO QDAY #20 tabs 01/28/25 [Rx Confirmed 04/09/25] sennosides 8.6 mg-docusate sodium 50 mg tablet (Senna-S) 1 tab-cap PO QDAY #30 tabs 01/28/25 [Rx Confirmed 04/09/25] cyclobenzaprine 5 mg tablet 5 mg PO TID PRN muscle spasm #60 tabs 01/30/25 [Rx Confirmed 04/09/25] oxycodone 5 mg tablet 5 mg PO Q6H PRN pain #28 tabs 02/01/25 [Rx Confirmed 04/09/25] pregabalin 75 mg capsule 75 mg PO BID #90 caps 04/09/25 [Rx] Exam Exam Breathing is nonlabored. Patient has a normal mood and affect. Bilateral extremities were evaluated and demonstrates sensation intact to light touch. Palpable pedal pulses are present. No significant edema is present. Bilateral hips were examined. The patient has no pain with log roll of the hips. Internal rotation to 30 degrees and external rotation to 30 degrees is painless. Negative FADIR. Left knee was examined today. The left knee is in reasonable alignment. Range of motion from 0-120 degrees. Knee is stable to varus and valgus as well as AP translation with <5mm. Patient has a negative McMurrays. There is no pain with patellofemoral compression and no crepitus noted. The knee is nontender to palpation. Right knee incisions clean dry intact. Range of motion is 0 to 110 degrees X-rays demonstrates a cementless total knee replacement in good alignment and position. This is dated 03/12/2025 Assessment and Plan Problem List (1) Unilateral primary osteoarthritis, right knee: Status: Acute Plan: Patient is a pleasant 54-year-old female with a recent right total knee replacement. She is doing well. She is happy with her therapy Her knee feels stable and we recommend continued outpatient physical therapy Office Procedures GNS Level of Care Nursing/Assessment Patient Status: Established Patient Nursing Assessment/Reassesment: Medication Reconciliation, Update PMH in EMR and Vital Signs Coordination of Care: Complex Care and Chronic Disease 1-5, Education Complex Pt/Fam, Consent,records obtained, informed consent, Results/Orders obtained and Staff clarify orders Established Patient Charge Established Patient Point Assignment: 95 Established Patient Point Charge: EP Level 3 (80-115) MA Intake Visit Data Collection New Patient or Established: Established Patient (seen at [facility] within 3 years) Reason for Visit:: XRAY RESULTS Seen by Clinical Staff ONLY (RN/MA): No PCP or OBGYN visit in last 3 months: Yes Hx Now: No Do You Feel Safe at Home: Yes Authorities Contacted: N/A Questionairres Past Medical History Past Medical History Have you ever been diagnosed with any of the following: Neurological Problems Cerebrovascular Accident (CVA): No Transient Ischemic Attacks (TIA): No Dementia: No Alzheimer's Disease: No Parkinson's Disease: No Brain Tumor: No Meningitis: No Seizures: No Epilepsy: No Multiple Sclerosis: No Cerebral Palsy: No Amyotrophic Lateral Sclerosis (ALS/Joyce Gehrig's): No Guillain-Ralph Syndrome: No Spina Bifida: No Paralysis: No Peripheral Neuropathy: No Patel's Palsy: No Subdural Hematoma: No Migraine: No Head Trauma: No Spinal Cord Injury: No Traumatic Brain Injury: No Cardiology Problems Myocardial Infarction: No Cardiac Arrhythmia: No Atrial Fibrillation: No Angina: No Heart Murmur: No Coronary Artery Disease: No Atherosclerotic Heart Disease: No Peripheral Vascular Disease: No Hypercholesterolemia: No Aneurysm: No Congestive Heart Failure: No Congenital Heart Disease: No Valvular Heart Disease: No Rheumatic Fever: No Cardiomyopathy: No Edema: No Pericarditis: No Cellulitis: No Deep Vein Thrombosis: No Hypertension: No Hypotension: No Varicose Veins: No Respiratory Problems Chronic Obstructive Pulmonary Disease (COPD): No Asthma: No Bronchitis: No Emphysema: No Pneumonia: No Pulmonary Fibrosis: No Tuberculosis: No Pulmonary Embolism: No Pulmonary Edema: No Sleep Apnea: No CPAP Dependent: No Respiratory Aspiration: No Dyspnea: No Orthopnea: No Hx Cough: No Cough: No Wheezing: No Chest Deformities: No Smoking: No Smoking Cessation Counseling: No Smoking Exposure: No Tobacco Use: No Clubbing: No Exposure to Respiratory Irritants: No Intubation: No Stomache/Intestinal Problems Liver Cancer: No Hepatitis: No Cirrhosis: No Pancreatic Cancer: No Pancreatitis: No Celiac Disease: No Gall Bladder Disease: No Gastrointestinal Bleed: No Esophageal Varices: No Samuel's Esophagus: No Colitis: No Ulcerative Colitis: No Diverticulitis: No Diverticulosis: Yes Ulcer: No Colorectal Cancer: No Irritable Bowel: No Crohn's Disease: No Obstructive Bowel: No Hiatal Hernia: No Hemorrhoids: No Gastroesophageal Reflux Disease: No Polyps: No Obesity: No Genital/Urinary Problems Chronic Kidney Disease: No Renal Disease: No Kidney Stones: No Polycystic Kidney Disease: No Neurogenic Bladder: No Inguinal Hernia: No Dialysis: No Reproductive Problems Breast Cancer: No Endometriosis: No Fibroids: No Genital Herpes: No Gonorrhea: No Pelvic Inflammatory Disease: No Polycystic Ovarian Syndrome: No Previous Pregnancies: Yes Syphilis: No Uterine Prolapse: No Musculoskeletal Problems Muscular Dystrophy: No Myasthenia Gravis: No Marfan's Syndrome: No Bone Cancer: No Arthritis: Yes Rheumatoid Arthritis: No Osteoporosis: No Degenerative Disk Disease: No Gout: No Scoliosis: No Carpal Tunnel Syndrome: No Fibromyalgia: No Fractures: No Degenerative Joint Disease: No Osteomyelitis: No Poliovirus: No Head,Eye,Nose,Throat Problems Cataracts: No Glaucoma: No Blind: No Retinal Detachment: No Macular Degeneration: No Chronic Ear Infections: No Deafness: No Eye Prosthesis: No Endocrine Problems Diabetes Mellitus Type 1: No Diabetes Mellitus Type 2: No Hypoglycemia: No Marisabel's Syndrome: No Ashu's Disease: No Hyperthyroidism: No Hypothyroidism: No Thyroid Cancer: No Parathyroid Disease: No Pituitary Disease: No Systemic Lupus Erythematosus: No Syndrome of Inappropriate Antidiuretic Hormone: No Blood Problems Anemia: No Leukemia: No Hemophilia: No Thalassemia: No Sickle Cell Disease: No Clotting Problems: No Psychologic Problems Schizophrenia: No Recreational Drug Use: No Bipolar Disorder: No Depression: No Anxiety: Yes Behavior Problems: No Self-Mutilation: No Attention Deficit Disorder: No Attention Deficit Hyperactivity Disorder: No Depression: No Post Traumatic Stress Disorder: No Eating Disorder: No Other Problems Hospitalization: Yes (surgery) Autoimmune Disease: No Down Syndrome: No Autism: No Developmental Delay: No Cosmetic Surgery: No Shingles: No Falls: No Blood Transfusions: No Blood Transfusion Reaction: No Anesthesia Reactions: No Organ Transplant: No Chemotherapy: No Radiation Therapy: No Hyperbaric Therapy: No MRSA: No VRSA: No Vancomycin-Resistant Enterococci: No Human Immunodeficiency Virus (HIV): No Chicken Pox: Yes Measles: No Mumps: Yes Rubella (Korean Measles): No Pertussis: No Klebsiella Pneumoniae Carbapenemase Producing Bacteria: No Clostridium Difficile: No Hepatitis A: No Hepatitis B: No Hepatitis C: No Communicable Disease: No Cancer: No Cervical Cancer: No Lung Cancer: No Ovarian Cancer: No Surgical History Angioplasty: No Appendectomy: No Bariatric Surgery: No Breast Surgery: No Cancer Surgery: No Carotid Endarterectomy: No Cholecystectomy: No Colectomy: No Colostomy: No Coronary Artery Bypass Graft: No Valve Replacement: No Herniorrhaphy: No Total Hip Replacement: No Total Knee Replacement: No Hysterectomy: Yes Pacemaker: No Sinus Surgery: No Splenectomy: No TAHBSO-Total Abdominal Hysterectomy: No Thyroidectomy: No Ureter Stent: No Subjective Visit Visit for: follow up visit, knee and x-rays Immunization / Flu Flu Vaccine in the Last 12 Months: No Flu Vaccine Exclusion Criteria: No Exclusion Criteria History of Present Illness Chief complaint: 2 WEEK POST OP RIGHT TKA Ignacia is a pleasant 54-year-old female with right knee pain that has been ongoing for over a year. She is doing well 9 weeks status post right total knee replacement. She is happy. She has questions about her knee replacement. She feels like there is some crackles in her knee and she reports the knee gives out every once in a while. She is continue to work with outpatient therapy Personal History Red flag PMH: none BMI Counceling provided: Yes Pain Pain level (0-10): 5 Pain duration: ON AND OFF Pain location: anterior Pain quality: aching Pain timing: increases with activity and stairs Associated signs & symptoms: numbness Ambulatory data Ambulatory device: none Walking distance (minutes): 1 Treatments Number of previous injections: 3 Improvement with previous injections: No Number of Physical Therapy sessions: 5 Improvement with PT: No Improvement with NSAIDS: no Review of Systems Review of Systems: All systems negative unless otherwise noted in HPI.
[2025-04-09 11:10] VITALS: BP 120/77; PULSE 68; RESP 18; TEMP 36.4; O2SAT 98; BMI 29.0
== END 2025-04-09 11:24 | disposition home or self-care (01) ==
LOC: HODSRG 10:57
PROVIDERS: Supervising Provider Orthopaedic Surgery Adult Reconstructive Orthopaedic Surgery; Visit Provider Orthopaedic Surgery Adult Reconstructive Orthopaedic Surgery
DX: M17.11 Unilateral primary osteoarthritis, right knee (principal); Z96.651 Presence of right artificial knee joint; M25.561 Pain in right knee
CPT/HCPCS: 99213; G0463

== ENCOUNTER 2025-04-25 09:00 | Outpatient (RCR) | payer BC, SELFPAY ==
--- NOTE | 2025-04-03 16:17 | PT.ODAYNRPT ---
PT Outpatient Daily Note OP Daily Note Outpatient Physical Therapy Treatment Date: 04/03/25 Visit Reasons: S/P RIGHT TKA Subjective: Pt shared that she went to a chiropractor due to her R hip really bothering her, hip feels a lot better after her chiropractor visit. Pt concerned that she notices her socks slide off sometime when walking. Objective: Please see flow sheet for ther ex lsit. Assessment: Pt demonstrates knee extension lag and poor heel strike during ambulation, corrected with verbal cues and demonstrations. Plan: Continue with POC. Length of Time (minutes) of Treatment: 30 Minutes Procedure Charges Therapeutic Exercise 30 minutes: Yes
--- NOTE | 2025-04-08 12:57 | PT.ODAYNRPT ---
PT Outpatient Daily Note OP Daily Note Outpatient Physical Therapy Treatment Date: 04/08/25 Visit Reasons: S/P RIGHT TKA Subjective: Pt reports knee is moving better but still has episodes of knee giving out (buckling) and shared that she can be standing still or walking and knee gives out. Pt has a follow up this week with Dr. Zheng. Objective: Please see flow sheet for ther ex list. Assessment: Progressing strengthening interventions, no knee buckling during PT session but reports crepitus. Plan: Continue with pOC. Length of Time (minutes) of Treatment: 30 Minutes Procedure Charges Therapeutic Exercise 30 minutes: Yes
--- NOTE | 2025-04-10 11:16 | PT.ODAYNRPT ---
PT Outpatient Daily Note OP Daily Note Outpatient Physical Therapy Treatment Date: 04/10/25 Visit Reasons: S/P RIGHT TKA Subjective: Pt shared she had a follow up with surgeon, let him know about the clicking of the knee and knee buckling. As per pt surgeon menitoned that at this time the popping is normal and the knee buckling is likely due to weakness. Pt to follow up with odessan in a few months. Objective: Please see flow sheet for there xlist. Assessment: Pt instructed on added interventions to work on improving strength and ROm, pt encouraged to perform updated interventions for HEP. Pt agreed. Plan: Continue with POC. Length of Time (minutes) of Treatment: 30 Minutes Procedure Charges Therapeutic Exercise 30 minutes: Yes
--- NOTE | 2025-04-18 10:44 | PT.ODAYNRPT ---
PT Outpatient Daily Note OP Daily Note Outpatient Physical Therapy Treatment Date: 04/18/25 Visit Reasons: S/P RIGHT TKA Subjective: Pt reports she has been compliant with HEP. Objective: Please see flow sheet for ther ex list. Assessment: Progressing quad strengthening and focus on static and dynamic stretches to improve knee extension. Pt demonstrates knee extension lag during LAQ exercise. Plan: Continue with poC. Length of Time (minutes) of Treatment: 30 Minutes Procedure Charges Therapeutic Exercise 30 minutes: Yes
--- NOTE | 2025-04-22 14:59 | PT.ODS1RPT ---
PT OP Progress/Discharge Note Date of Service: 04/22/25 Progress Note/DC Note Progress Note/Discharge Note: Progress Note Patient Information Visit Reasons: S/P RIGHT TKA Medical Diagnosis: Right Knee OA Treatment Dx #1: Right Knee Mobility Deficits Treatment Dx #2: Right Knee Weakness Service Continue Service or Discharge: Continue Service Certification Date Certification Dates: 04/22/25 to 07/23/25 Status Subjective: Pt's knee is feeling much better. Pt mentioned walking, standing, chores, and work duties are getting easier. Pt still notice intermittent knee buckling or catching with prolonged activities. Overall Pt is satisfy with the knee and progression. Objective: Right Knee AROM: -8 deg to 115 deg Right Knee MMTs: grossly 4-/5 Right Hip MMTs: grossly 3+/5 SLS: 5 sec Assessment: Pt is improving with knee AROM and strength allowing her to start light ADLs, ambulation, and chores with less limitation. Despite Pt's improvement Pt has not met set goals and will continue to benefit from physical therapy to work on ROM, strength, and balance; thank you for your referrals. Plan: Continue with PT/POC and add 6 sessions (2 x wk for 3 wks) Procedure Charges Therapeutic Exercise 30 minutes: Yes
--- NOTE | 2025-04-25 09:40 | PT.ODAYNRPT ---
PT Outpatient Daily Note OP Daily Note Outpatient Physical Therapy Treatment Date: 04/25/25 Visit Reasons: S/P RIGHT TKA Subjective: Pt's knee been more inflamed lately. Pt mentioned she return back to work and standing longer lately. Pt will like to take it easier for the day since she will be returning back to work after therapy session Objective: Please see flow chart for list of ther ex performed Assessment: decrease resistance and weight today due to reported increase knee pain from work activities. Pt tolerate exercises well and decline ice post PT due to needing to return back to work. Plan: Continue with PT Length of Time (minutes) of Treatment: 30 Minutes Procedure Charges Therapeutic Exercise 30 minutes: Yes
== END 2025-05-02 23:59 | disposition home or self-care (01) ==
LOC: CPTX 09:00
PROVIDERS: PCP Orthopaedic Surgery Adult Reconstructive Orthopaedic Surgery; Referring Provider Orthopaedic Surgery Adult Reconstructive Orthopaedic Surgery; Visit Provider Orthopaedic Surgery Adult Reconstructive Orthopaedic Surgery
DX: R53.1 Weakness (principal); R26.2 Difficulty in walking, not elsewhere classified; R26.89 Other abnormalities of gait and mobility; Z96.651 Presence of right artificial knee joint
CPT/HCPCS: 97110

== ENCOUNTER 2025-05-30 15:30 | Outpatient (RCR) | payer BC, SELFPAY ==
--- NOTE | 2025-05-07 16:32 | PT.ODAYNRPT ---
PT Outpatient Daily Note OP Daily Note Outpatient Physical Therapy Treatment Date: 05/07/25 Visit Reasons: s/p right TKA Subjective: Pt reports knee is doing better, will be having lymphatic drainage massage today. Pt mentioned she has an appointment has to be out few minutes early. Objective: Please see flow sheet for ther ex list. Assessment: Pt ROM continues to progress improving gait. Plan: Continue with pOC. Length of Time (minutes) of Treatment: 18 Minutes Procedure Charges Therapeutic Exercise 15 minutes: Yes
--- NOTE | 2025-05-09 16:21 | PT.ODAYNRPT ---
PT Outpatient Daily Note OP Daily Note Outpatient Physical Therapy Treatment Date: 05/09/25 Visit Reasons: s/p right TKA Subjective: Pt reports knee is doing ok, went to have a lymphatic drainage massage Tuesday went well will be doing a total of 5 sessions. Objective: Please see flow sheet for ther ex list. Assessment: Continue with focus on restoring ROM. Plan: Continue with poC. Length of Time (minutes) of Treatment: 30 Minutes Procedure Charges Therapeutic Exercise 30 minutes: Yes
--- NOTE | 2025-05-14 16:04 | PT.ODAYNRPT ---
PT Outpatient Daily Note OP Daily Note Outpatient Physical Therapy Treatment Date: 05/14/25 Visit Reasons: s/p right TKA Subjective: Pt reports R knee is doing better. Objective: Please see flow sheet for ther ex list. Assessment: Progressing functional strengthening as tolerated and working on improving knee extension. Plan: Continue with poC. Length of Time (minutes) of Treatment: 30 Minutes Procedure Charges Therapeutic Exercise 30 minutes: Yes
--- NOTE | 2025-05-21 15:59 | PT.ODS1RPT ---
PT OP Progress/Discharge Note Date of Service: 05/21/25 Progress Note/DC Note Progress Note/Discharge Note: Progress Note Patient Information Visit Reasons: s/p right TKA Medical Diagnosis: Right Knee OA Treatment Dx #1: Right Knee Weakness Treatment Dx #2: Right Knee Mobility Deficits Service Continue Service or Discharge: Continue Service Certification Date Certification Dates: 05/21/25 to 08/21/25 Status Subjective: Pt's knee is feeling much better. Pt now notice decrease limping with walking. Pt has been seeing a massage therapist to help with the swelling around her leg and knee. Pt can now walk, stand, and perform chores longer with less limitation. Pt still has difficulty with work duties, balance, and performing recreational activities. Pt follows up with surgeon in the middle of June. Objective: Right KNee AROM: -6 deg to 120 deg Right Knee MMTs: grossly 4/5 Right Hip MMTs: grossly 3+/5 SLS: 15 sec Assessment: Pt continues to improve with right knee mobility, strength, and balance allowing her to ambulate, stand, perform chores, and work duties with less limitation. Pt has not met set goals and will continue to benefit from physical therapy; thank you for your referrals. Plan: Continue with PT/POC and add 8 sessions (2 x wk for 4 wks) Procedure Charges Therapeutic Exercise 30 minutes: Yes
--- NOTE | 2025-05-23 16:28 | PT.ODAYNRPT ---
PT Outpatient Daily Note OP Daily Note Outpatient Physical Therapy Treatment Date: 05/23/25 Visit Reasons: s/p right TKA Subjective: Pt reports knee is doing better, mentioned she met her ROM goal for knee flexion. Objective: Please see flow sheet for ther ex list. Assessment: Added lunges, pt demonstrates good knee positioning during lunge and controlled lunge depth. Plan: Continue with POC. Length of Time (minutes) of Treatment: 30 Minutes Procedure Charges Therapeutic Exercise 30 minutes: Yes
--- NOTE | 2025-05-31 08:47 | PT.ODAYNRPT ---
PT Outpatient Daily Note OP Daily Note Outpatient Physical Therapy Treatment Date: 05/30/25 Visit Reasons: s/p right TKA Subjective: Pt's knee is much better. Pt mentioned she's been going to a massage therapist in [place] to help with the lymphedema. The swelling has improved significantly. Pt wants to work on stairs, steps, and being able to kneel on the knee. The other day Pt had difficulty getting a pot out underneath the cabinet Objective: Please see flow chart for list of ther ex perfomed Assessment: practice kneeling on the foam, however, increase stiffness and pain after exercise. Pt recommended not to kneel unless necessary due to nature of the implant and type of surgery. Pt further advised to consult with surgeon regarding kneeling position. Pt is progressing with balance, AROM, and knee stability. Use mirror to teach patient to distribute weight equally through the knee with deep squatting. Plan: Continue with PT Length of Time (minutes) of Treatment: 30 Minutes Procedure Charges Therapeutic Exercise 30 minutes: Yes
== END 2025-06-02 23:59 | disposition home or self-care (01) ==
LOC: CPTX 15:30
PROVIDERS: PCP Orthopaedic Surgery Adult Reconstructive Orthopaedic Surgery; Referring Provider Orthopaedic Surgery Adult Reconstructive Orthopaedic Surgery; Visit Provider Orthopaedic Surgery Adult Reconstructive Orthopaedic Surgery
DX: R53.1 Weakness (principal); R26.89 Other abnormalities of gait and mobility; Z96.651 Presence of right artificial knee joint
CPT/HCPCS: 97110

== ENCOUNTER 2025-06-11 15:30 | Outpatient (RCR) | payer BC, SELFPAY ==
--- NOTE | 2025-06-04 16:08 | PT.ODAYNRPT ---
PT Outpatient Daily Note OP Daily Note Outpatient Physical Therapy Treatment Date: 06/04/25 Visit Reasons: S/P R tka Subjective: Pt's knee feels good and wants to continue to work on stairs and steps. Pt goes up and down 2 story home for work at least twice a week. Objective: Please see flow chart for list of ther ex performed Assessment: knee valgus with step down noted; tactile cue and visual cue from mirror helped correct form. Plan: Continue with PT Length of Time (minutes) of Treatment: 30 Minutes Procedure Charges Therapeutic Exercise 30 minutes: Yes
--- NOTE | 2025-06-06 16:39 | PT.ODAYNRPT ---
PT Outpatient Daily Note OP Daily Note Outpatient Physical Therapy Treatment Date: 06/06/25 Visit Reasons: S/P R tka Subjective: Pt reports R knee is doing better, has been correcting foot placement when navigating stairs, steps to avoid toeing out. Objective: Please see flow sheet for ther ex list. Assessment: Pt demonstrates improved control with descending steps, focus on avoiding medial knee collapse and toe out with R foot. Plan: Continue with pOC. Length of Time (minutes) of Treatment: 30 Minutes Procedure Charges Therapeutic Exercise 30 minutes: Yes
--- NOTE | 2025-06-11 16:02 | PT.ODAYNRPT ---
PT Outpatient Daily Note OP Daily Note Outpatient Physical Therapy Treatment Date: 06/11/25 Visit Reasons: S/P R tka Subjective: Pt's knee is much better. Pt does not have any new concerns. Pt mentioned she has a follow up appt with Dr Zheng in a few days. Pt will contact physical therapy if further physical therapy is needed or surgeon plans to release her from care. Objective: Please see flow chart for list of ther ex perfomed Assessment: cues to decrease knee valgus with step down and slunge exercises with more glute engagement Plan: Continue with PT Length of Time (minutes) of Treatment: 30 Minutes Procedure Charges Therapeutic Exercise 30 minutes: Yes
--- NOTE | 2025-06-13 14:25 | PT.ODS1RPT ---
PT OP Progress/Discharge Note Date of Service: 06/13/25 Patient Information Visit Reasons: S/P R tka Status Assessment: Pt has been seen for 24 visits (eval + 23 visits). Pt called 06/13/24 AM to cx all pending PT appt. Per Pt surgeon has release her from care and she feels good. Pt will be d/c from care per Pt's request; thank you for your referrals.
== END 2025-07-02 23:59 | disposition home or self-care (01) ==
LOC: CPTX 15:30
PROVIDERS: PCP Orthopaedic Surgery Adult Reconstructive Orthopaedic Surgery; Referring Provider Orthopaedic Surgery Adult Reconstructive Orthopaedic Surgery; Visit Provider Orthopaedic Surgery Adult Reconstructive Orthopaedic Surgery
DX: R53.1 Weakness (principal); R26.2 Difficulty in walking, not elsewhere classified; R26.89 Other abnormalities of gait and mobility; Z47.1 Aftercare following joint replacement surgery; Z96.651 Presence of right artificial knee joint
CPT/HCPCS: 97110

== ENCOUNTER 2025-06-13 08:46 | Outpatient (AMB) | payer BC, SELFPAY ==
--- NOTE | 2025-06-13 08:51 | PD.ORTHCLVIS ---
Vital signs 06/13/25 08:55 Height 1.68 m Height Method Measured Weight 78.642 kg Weight Measurement Method Standing Scale BMI 27.8 BP 121/86 H Blood Pressure Source Automatic Cuff Blood Pressure Location Left Upper Arm Position Sitting Respiration 18 Pulse 77 Pulse Source Monitor Temp 97.7 F Temp Source Temporal Artery Scan Pulse Oximetry (%) 97 Oxygen Delivery Method Room Air Med/Allergies Allergies & Medications Allergies No Known Allergies Allergy (Verified 06/13/25 08:56) Medication Reconciliation estradiol 0.1 mg/24 hr semiweekly transdermal patch 1 mg topical .twice week MENOPAUSAL SYMPTOMS 01/25/25 [History Confirmed 06/13/25] methylphenidate HCl 10 mg tablet 10 mg PO DAILY ADHD 01/25/25 [History Confirmed 06/13/25] mirabegron 25 mg tablet,extended release 24 hr (Myrbetriq) 25 mg PO QDAY 01/25/25 [History Confirmed 06/13/25] acetaminophen 500 mg tablet (Acetaminophen Extra Strength) 1,000 mg (2 x 500 mg) PO Q6H PRN pain #90 tabs 01/28/25 [Rx Confirmed 06/13/25] aspirin 81 mg tablet,delayed release 81 mg PO BID #60 tabs 01/28/25 [Rx Confirmed 06/13/25] doxycycline hyclate 100 mg tablet 100 mg PO BID #14 tabs 01/28/25 [Rx Confirmed 06/13/25] gabapentin 300 mg capsule 300 mg PO .qhs #30 caps 01/28/25 [Rx Confirmed 06/13/25] pantoprazole 40 mg tablet,delayed release 40 mg PO QDAY #20 tabs 01/28/25 [Rx Confirmed 06/13/25] sennosides 8.6 mg-docusate sodium 50 mg tablet (Senna-S) 1 tab-cap PO QDAY #30 tabs 01/28/25 [Rx Confirmed 06/13/25] cyclobenzaprine 5 mg tablet 5 mg PO TID PRN muscle spasm #60 tabs 01/30/25 [Rx Confirmed 06/13/25] oxycodone 5 mg tablet 5 mg PO Q6H PRN pain #28 tabs 02/01/25 [Rx Confirmed 06/13/25] pregabalin 75 mg capsule 75 mg PO BID #90 caps 04/09/25 [Rx Confirmed 06/13/25] Exam Exam Breathing is nonlabored. Patient has a normal mood and affect. Bilateral extremities were evaluated and demonstrates sensation intact to light touch. Palpable pedal pulses are present. No significant edema is present. Bilateral hips were examined. The patient has no pain with log roll of the hips. Internal rotation to 30 degrees and external rotation to 30 degrees is painless. Negative FADIR. Left knee was examined today. The left knee is in reasonable alignment. Range of motion from 0-120 degrees. Knee is stable to varus and valgus as well as AP translation with <5mm. Patient has a negative McMurrays. There is no pain with patellofemoral compression and no crepitus noted. The knee is nontender to palpation. Right knee incisions clean dry intact. Range of motion is 0 to 110 degrees X-rays demonstrates a cementless total knee replacement in good alignment and position. This is dated 03/12/2025 Assessment and Plan Problem List (1) Unilateral primary osteoarthritis, right knee: Status: Acute Plan: Patient is a pleasant 54-year-old female with a recent right total knee replacement. She is doing well. We will see her back in approximately 6 to 7 months for routine follow-up Office Procedures GNS Level of Care Nursing/Assessment Patient Status: Established Patient Nursing Assessment/Reassesment: Medication Reconciliation, Orthostatic Vitals, Update PMH in EMR and Vital Signs Coordination of Care: Complex Care and Chronic Disease 1-5, Education Complex Pt/Fam, Consent,records obtained, informed consent, Results/Orders obtained and Staff clarify orders Established Patient Charge Established Patient Point Assignment: 105 Established Patient Point Charge: Level 3 (80-115) MA Intake Visit Data Collection New Patient or Established: Established Patient (seen at [facility] within 3 years) Reason for Visit:: POST OP RIGHT TKA Seen by Clinical Staff ONLY (RN/MA): No [employer] Manager Required: No PCP or OBGYN visit in last 3 months: Yes Hx Now: No Do You Feel Safe at Home: Yes Authorities Contacted: N/A Questionairres Past Medical History Past Medical History Have you ever been diagnosed with any of the following: Neurological Problems Cerebrovascular Accident (CVA): No Transient Ischemic Attacks (TIA): No Dementia: No Alzheimer's Disease: No Parkinson's Disease: No Brain Tumor: No Meningitis: No Seizures: No Epilepsy: No Multiple Sclerosis: No Cerebral Palsy: No Amyotrophic Lateral Sclerosis (ALS/Joyce Gehrig's): No Guillain-Carlisle Syndrome: No Spina Bifida: No Paralysis: No Peripheral Neuropathy: No Patel's Palsy: No Subdural Hematoma: No Migraine: No Head Trauma: No Spinal Cord Injury: No Traumatic Brain Injury: No Cardiology Problems Myocardial Infarction: No Cardiac Arrhythmia: No Atrial Fibrillation: No Angina: No Heart Murmur: No Coronary Artery Disease: No Atherosclerotic Heart Disease: No Peripheral Vascular Disease: No Hypercholesterolemia: No Aneurysm: No Congestive Heart Failure: No Congenital Heart Disease: No Valvular Heart Disease: No Rheumatic Fever: No Cardiomyopathy: No Edema: No Pericarditis: No Cellulitis: No Deep Vein Thrombosis: No Hypertension: No Hypotension: No Varicose Veins: No Respiratory Problems Chronic Obstructive Pulmonary Disease (COPD): No Asthma: No Bronchitis: No Emphysema: No Pneumonia: No Pulmonary Fibrosis: No Tuberculosis: No Pulmonary Embolism: No Pulmonary Edema: No Sleep Apnea: No CPAP Dependent: No Respiratory Aspiration: No Dyspnea: No Orthopnea: No Hx Cough: No Cough: No Wheezing: No Chest Deformities: No Smoking: No Smoking Cessation Counseling: No Smoking Exposure: No Tobacco Use: No Clubbing: No Exposure to Respiratory Irritants: No Intubation: No Stomache/Intestinal Problems Liver Cancer: No Hepatitis: No Cirrhosis: No Pancreatic Cancer: No Pancreatitis: No Celiac Disease: No Gall Bladder Disease: No Gastrointestinal Bleed: No Esophageal Varices: No Samuel's Esophagus: No Colitis: No Ulcerative Colitis: No Diverticulitis: No Diverticulosis: Yes Ulcer: No Colorectal Cancer: No Irritable Bowel: No Crohn's Disease: No Obstructive Bowel: No Hiatal Hernia: No Hemorrhoids: No Gastroesophageal Reflux Disease: No Polyps: No Obesity: No Genital/Urinary Problems Chronic Kidney Disease: No Renal Disease: No Kidney Stones: No Polycystic Kidney Disease: No Neurogenic Bladder: No Inguinal Hernia: No Dialysis: No Reproductive Problems Breast Cancer: No Endometriosis: No Fibroids: No Genital Herpes: No Gonorrhea: No Pelvic Inflammatory Disease: No Polycystic Ovarian Syndrome: No Previous Pregnancies: Yes Syphilis: No Uterine Prolapse: No Musculoskeletal Problems Muscular Dystrophy: No Myasthenia Gravis: No Marfan's Syndrome: No Bone Cancer: No Arthritis: Yes Rheumatoid Arthritis: No Osteoporosis: No Degenerative Disk Disease: No Gout: No Scoliosis: No Carpal Tunnel Syndrome: No Fibromyalgia: No Fractures: No Degenerative Joint Disease: No Osteomyelitis: No Poliovirus: No Head,Eye,Nose,Throat Problems Cataracts: No Glaucoma: No Blind: No Retinal Detachment: No Macular Degeneration: No Chronic Ear Infections: No Deafness: No Eye Prosthesis: No Endocrine Problems Diabetes Mellitus Type 1: No Diabetes Mellitus Type 2: No Hypoglycemia: No La Pryor's Syndrome: No Ashu's Disease: No Hyperthyroidism: No Hypothyroidism: No Thyroid Cancer: No Parathyroid Disease: No Pituitary Disease: No Systemic Lupus Erythematosus: No Syndrome of Inappropriate Antidiuretic Hormone: No Blood Problems Anemia: No Leukemia: No Hemophilia: No Thalassemia: No Sickle Cell Disease: No Clotting Problems: No Psychologic Problems Schizophrenia: No Recreational Drug Use: No Bipolar Disorder: No Depression: No Anxiety: Yes Behavior Problems: No Self-Mutilation: No Attention Deficit Disorder: No Attention Deficit Hyperactivity Disorder: No Depression: No Post Traumatic Stress Disorder: No Eating Disorder: No Other Problems Hospitalization: Yes (surgery) Autoimmune Disease: No Down Syndrome: No Autism: No Developmental Delay: No Cosmetic Surgery: No Shingles: No Falls: No Blood Transfusions: No Blood Transfusion Reaction: No Anesthesia Reactions: No Organ Transplant: No Chemotherapy: No Radiation Therapy: No Hyperbaric Therapy: No MRSA: No VRSA: No Vancomycin-Resistant Enterococci: No Human Immunodeficiency Virus (HIV): No Chicken Pox: Yes Measles: No Mumps: Yes Rubella ([place] Measles): No Pertussis: No Klebsiella Pneumoniae Carbapenemase Producing Bacteria: No Clostridium Difficile: No Hepatitis A: No Hepatitis B: No Hepatitis C: No Communicable Disease: No Cancer: No Cervical Cancer: No Lung Cancer: No Ovarian Cancer: No Surgical History Angioplasty: No Appendectomy: No Bariatric Surgery: No Breast Surgery: No Cancer Surgery: No Carotid Endarterectomy: No Cholecystectomy: No Colectomy: No Colostomy: No Coronary Artery Bypass Graft: No Valve Replacement: No Herniorrhaphy: No Total Hip Replacement: No Total Knee Replacement: No Hysterectomy: Yes Pacemaker: No Sinus Surgery: No Splenectomy: No TAHBSO-Total Abdominal Hysterectomy: No Thyroidectomy: No Ureter Stent: No Subjective Visit Visit for: follow up visit and knee Immunization / Flu Flu Vaccine in the Last 12 Months: No Flu Vaccine Exclusion Criteria: No Exclusion Criteria History of Present Illness Chief complaint: POST OP RIGHT TKA Ignacia is a pleasant 54-year-old female with right knee pain that has been ongoing for over a year. She is doing well 4 months status post right total knee replacement. She is happy. She reports that she is doing well with outpatient physical therapy Personal History Red flag PMH: none BMI Counceling provided: Yes Pain Pain level (0-10): 0 Pain duration: ON AND OFF Pain location: anterior Pain quality: aching Pain timing: increases with activity and stairs Associated signs & symptoms: none Ambulatory data Ambulatory device: none Walking distance (minutes): 1 Treatments Number of previous injections: 3 Improvement with previous injections: No Number of Physical Therapy sessions: 5 Improvement with PT: No Improvement with NSAIDS: no Review of Systems Review of Systems: All systems negative unless otherwise noted in HPI.
[2025-06-13 08:55] VITALS: BP 121/86; PULSE 77; RESP 18; TEMP 36.5; O2SAT 97; BMI 27.8
== END 2025-06-13 09:04 | disposition home or self-care (01) ==
PROVIDERS: PCP Physician Assistant; Referring Provider Physician Assistant; Supervising Provider Orthopaedic Surgery Adult Reconstructive Orthopaedic Surgery; Visit Provider Orthopaedic Surgery Adult Reconstructive Orthopaedic Surgery
DX: M17.11 Unilateral primary osteoarthritis, right knee (principal); Z96.651 Presence of right artificial knee joint; M25.561 Pain in right knee
CPT/HCPCS: 99213; G0463